=== PATIENT | male | born 1970 | race Caucasian/White ===

== ENCOUNTER 2017-02-02 18:05 | Emergency (ER) | payer MEDICAID ==
[~2017-02-02] VITALS: Ht 170.2 cm; Wt 76.4 kg
[2017-02-02 18:37] VITALS: BP 120/80
[2017-02-02] MEDS ORDERED: FLUORESCEIN OPHTHALMIC 1 MG STRIP ONE (19:00)
[2017-02-02] MEDS ORDERED: FLUORESCEIN OPHTHALMIC 1 MG STRIP EACHEYE ONE (19:00)
[2017-02-02] MEDS ORDERED: PROPARACAINE OPHTH 0.5%, 15ML EACHEYE ONE (19:00)
[2017-02-02] MEDS ORDERED: PROPARACAINE OPHTH 0.5%, 15ML ONE (19:01)
== END 2017-02-02 20:51 ==
LOC: ED 20:30
DX: T15.12XA Foreign body in conjunctival sac, left eye, initial encounter (principal); X58.XXXA Exposure to other specified factors, initial encounter; Y93.89 Activity, other specified; Y92.89 Other specified places as the place of occurrence of the external cause; Y99.8 Other external cause status
CPT/HCPCS: 65205

== ENCOUNTER 2017-02-26 09:34 | Emergency (ER) | payer MEDICAID ==
[~2017-02-26] VITALS: Ht 170.2 cm; Wt 76.7 kg
[2017-02-26 09:35] VITALS: BP 125/82
== END 2017-02-26 11:01 | disposition home or self-care (01) ==
LOC: ED 10:50
DX: L03.116 Cellulitis of left lower limb (principal); L03.115 Cellulitis of right lower limb; L84 Corns and callosities
CPT/HCPCS: 82962; 99283

== ENCOUNTER 2017-03-01 16:45 | Emergency (ER) | payer MEDICAID ==
[~2017-03-01] VITALS: Ht 170.2 cm; Wt 74.1 kg
[2017-03-01 16:47] VITALS: BP 125/87
== END 2017-03-01 18:24 | disposition home or self-care (01) ==
LOC: ED 18:18
DX: L50.1 Idiopathic urticaria (principal); L24.9 Irritant contact dermatitis, unspecified cause; Z88.0 Allergy status to penicillin
CPT/HCPCS: 99283; Q0177

== ENCOUNTER 2017-03-08 19:40 | Emergency (ER) | payer MEDICAID ==
[~2017-03-08] VITALS: Ht 170.2 cm; Wt 74.9 kg
[2017-03-08] MEDS ORDERED: HYDROcodone/APAP 5/325 TABLET PO ONE (21:00)
[2017-03-08] MEDS ORDERED: IBUPROFEN 200 MG TABLET PO ONE (21:00)
[2017-03-08] MEDS ORDERED: IBUPROFEN 200 MG TABLET ONE (21:02)
[2017-03-08] MEDS ORDERED: HYDROcodone/APAP 5/325 TABLET ONE ×2 (21:02→21:06)
[2017-03-08 21:32] VITALS: BP 128/78
== END 2017-03-08 21:34 | disposition home or self-care (01) ==
LOC: ED 20:50
DX: S60.221A Contusion of right hand, initial encounter (principal); F12.10 Cannabis abuse, uncomplicated; W22.8XXA Striking against or struck by other objects, initial encounter; Y93.89 Activity, other specified; Y92.89 Other specified places as the place of occurrence of the external cause; Y99.8 Other external cause status; Z88.1 Allergy status to other antibiotic agents
CPT/HCPCS: 29125; 99284

== ENCOUNTER 2018-10-19 02:52 | Emergency (ER) | payer SELFPAY ==
[~2018-10-19] VITALS: Ht 170.2 cm; Wt 76.7 kg
[2018-10-19 02:54] VITALS: BP 134/86
[2018-10-19] MEDS ORDERED: CEPHALEXIN 500 MG CAPSULE PO ONE (03:30)
[2018-10-19] MEDS ORDERED: SULFAMETH./TRIMETHOPRIM DS 800MG/160MG TABLET PO ONE (03:30)
== END 2018-10-19 04:05 | disposition home or self-care (01) ==
LOC: ED 03:47
DX: L02.511 Cutaneous abscess of right hand (principal); F15.20 Other stimulant dependence, uncomplicated; F17.210 Nicotine dependence, cigarettes, uncomplicated; Z59.0 Homelessness
CPT/HCPCS: 99283

== ENCOUNTER 2020-12-02 13:42 | Emergency (ER) | payer SELFPAY ==
[~2020-12-02] VITALS: Ht 170.2 cm; Wt 85.0 kg
--- NOTE | 2020-12-02 13:55 | NUR ---
BIB BY [facility] FOR LOWER BACK PAIN RADIATING TO LEG. HX OF SAME (SEEN FOR SAME AT [facility] 11/23/19 GIVEN [facility]LEX[facility] RX THAT HE WASNT ABLE TO FILL BASED ON LIMITED INCOME.) NO SADDLE SX REPORT TO RANG[facility] TEMPLETON
[2020-12-02] MEDS ORDERED: DIAZEPAM 5 MG TABLET ONE (13:58)
[2020-12-02] MEDS ORDERED: KETOROLAC 30 MG/1 ML ONE (13:58)
[2020-12-02] MEDS ORDERED: KETOROLAC 30 MG/1 ML IM ONE (14:00)
[2020-12-02] MEDS ORDERED: DIAZEPAM 5 MG TABLET PO ONE (14:00)
--- NOTE | 2020-12-02 14:16 | NUR ---
ASSUMED CARE FROM [facility]. [facility]
[2020-12-02 14:21] VITALS: BP 126/89
== END 2020-12-02 15:34 | disposition home or self-care (01) ==
LOC: ED 15:15
DX: S39.012A Strain of muscle, fascia and tendon of lower back, initial encounter (principal); X58.XXXA Exposure to other specified factors, initial encounter; Y93.89 Activity, other specified; Y92.89 Other specified places as the place of occurrence of the external cause; Y99.8 Other external cause status
CPT/HCPCS: 96372; 99283; J1885

== ENCOUNTER 2021-08-17 14:20 | Emergency (ER) | payer MEDICAID ==
[~2021-08-17] VITALS: Ht 170.2 cm; Wt 76.0 kg
[2021-08-17 15:06] VITALS: BP 114/85
--- NOTE | 2021-08-17 18:08 | NUR ---
pt left ama
== END 2021-08-17 18:09 | disposition left against medical advice (07) ==
LOC: ED 14:25
DX: N50.812 Left testicular pain (principal)
CPT/HCPCS: 76870; 99284